=== PATIENT | female | born 1965 | race Caucasian/White ===

== ENCOUNTER 2023-01-17 08:48 | Outpatient (CLI) | payer OTHER, SELFPAY | END 2023-01-17 08:49 | disposition home or self-care (01) | PROVIDERS: Visit Provider Physician Assistant | DX: Z01.419 Encounter for gynecological examination (general) (routine) without abnormal findings (principal); E78.1 Pure hyperglyceridemia; I10 Essential (primary) hypertension; E78.5 Hyperlipidemia, unspecified; Z13.1 Encounter for screening for diabetes mellitus | CPT/HCPCS: 80061; 82947 ==

== ENCOUNTER 2023-01-31 08:56 | Outpatient (CLI) | payer BC, SELFPAY ==
--- NOTE | 2023-01-31 09:15 | CRLHL7_ITS ---
For Patients: As a result of the Century Cures Act, medical imaging exams and procedure reports are released immediately into your electronic medical record. You may view this report before your referring provider. If you have questions, please contact your health care provider. BILATERAL SCREENING MAMMOGRAM WITH COMPUTER-AIDED DETECTION TECHNIQUE: CC and MLO views were obtained. These mammographic images have been obtained using full-field digital technique. These mammographic images were interpreted with the benefit of computer-aided detection. COMPARISON FILM: 09/02/17, 09/07/13, 09/17/11. FINDINGS: The breasts are almost entirely fatty IMPRESSION: There is no radiographic evidence for malignancy. ASSESSMENT: BI-RADS Category 1: Negative RECOMMENDATION: Routine screening mammogram in 1 year. A lay language report of this examination will be provided to the patient. Omid Case M.D. Diagnostic Radiologist [email or web address] RENATA/cici / be/Dictated by: Omid Case MD @ 01/31/2023 11:03:00 AM (Electronically Signed)
== END 2023-01-31 08:57 | disposition home or self-care (01) ==
LOC: MAMMO 08:57
PROVIDERS: Visit Provider Physician Assistant
DX: Z12.31 Encounter for screening mammogram for malignant neoplasm of breast (principal)
CPT/HCPCS: 77067

== ENCOUNTER 2023-02-16 10:35 | Outpatient (CLI) | payer BC, SELFPAY | END 2023-02-16 10:36 | disposition home or self-care (01) | PROVIDERS: Visit Provider Physician Assistant Medical | DX: Z00.00 Encounter for general adult medical examination without abnormal findings (principal); I10 Essential (primary) hypertension; E78.1 Pure hyperglyceridemia; E78.5 Hyperlipidemia, unspecified | CPT/HCPCS: 80053; 84443 ==

== ENCOUNTER 2023-03-07 22:39 | Emergency (ER) | payer BC, SELFPAY ==
[2023-03-07 22:53] VITALS: BP 134/85; PULSE 88; RESP 18; TEMP 36.6; O2SAT 96; BMI 31.6
--- NOTE | 2023-03-08 00:52 | CRLHL7_ITS ---
For Patients: As a result of the Century Cures Act, medical imaging exams and procedure reports are released immediately into your electronic medical record. You may view this report before your referring provider. If you have questions, please contact your health care provider. INDICATION: Right lower quadrant abdominal pain TECHNIQUE: CT Abdomen and pelvis with i.v. contrast. Coronal and sagittal reformats were obtained. CONTRAST: 96 mL Isovue 370 COMPARISON: None FINDINGS: Lower chest: Unremarkable. Liver: Unremarkable. Spleen: Unremarkable. Pancreas: Unremarkable. Gallbladder: Previous cholecystectomy noted without significant intra- or extrahepatic biliary ductal dilatation seen. Kidney: Unremarkable. No kidney or ureteral stones or obstruction seen. Adrenal: Unremarkable. Bowel: Unremarkable. The appendix is normal in appearance and size. Vascular: Unremarkable. Lymph: Unremarkable. Peritoneum: There wispy infiltration of the fat near the tip of the cecum on image 97 which is near the base of the appendix. No pneumoperitoneum is seen. No significant ascites is noted. Pelvis: The right ovary measures 3.5 x 2.5 cm with homogeneous density of 30 HU. The appearance is indeterminate and can be better assessed by outpatient pelvic ultrasound. Soft tissue: Unremarkable. Bone: Unremarkable for age. IMPRESSION: 1. There wispy infiltration of the fat near the tip of the cecum on image 97 which is near the base of the appendix. This may be due to a region of fat necrosis or epiploic appendagitis. Appendicitis is considered much less likely. Dictated by Satya Acuna MD @ 03/08/2023 1:52:55 AM Please note that all CT scans at this facility use dose modulation, iterative reconstruction, and/or weight-based dosing when appropriate to reduce radiation dose to as low as reasonably achievable. Dictated by: Satya Acuna MD @ 03/08/2023 01:52:58 (Electronically Signed)
[2023-03-08 01:01] LABS: Appearance Urine Clear (Clear); Bilirubin Urine Negative (Negative); Blood Urine Negative (Negative); Color Urine Yellow (Yellow); Glucose Urine Negative (Negative); Ketones Urine Negative (Negative); Leukocyte Esterase Urine Negative (Negative); Nitrite Urine Negative (Negative); Protein Urine Negative (Negative); Specific Gravity Urine 1.015 (1.000-1.030); Urobilinogen Urine 0.2 (0.2-1.0); pH Urine 5.5 (5.0-8.5)
[2023-03-08] MEDS: KETOROLAC 15 MG/ML inj IVP (01:03)
[2023-03-08 01:04] LABS: Basophils Percent Auto 0.2 % (0.0-3.0); Eosinophils Percent Auto 2.7 % (0.0-7.0); Hematocrit 46.6 % (33.0-51.0); Hemoglobin* 15.1 gm/dL (12.0-16.0); Immature Granulocytes Pct Auto 0.8 %; Lymphocytes Percent Auto 31.6 % (20-44); Mean Corpuscular HGB Conc 32 gm/dL (32-36); Mean Corpuscular Hemoglobin 31 pg (26-34); Mean Corpuscular Volume 95 fL (80-100); Monocytes Percent Auto 7.6 % (0.0-11.0); Neutrophils Percent Auto 57.1 % (42.0-72.0); Platelet Count* 220 K/uL (140-440); RDW Coefficient of Variation % 11.9 % (11.5-15.5); Red Blood Count 4.89 m/uL (4.00-5.20); White Blood Count* 12.41 K/uL (4.50-11.00)
[2023-03-08] MEDS: ONDANSETRON 2 MG/ML inj 4 MG IVP (01:04)
[2023-03-08 01:07] LABS: Slide Review Reflex No
[2023-03-08 01:27] LABS: Albumin* 4.4 g/dL (3.3-5.0); Chloride* 101 mmol/L (96-114); Sodium* 140 mmol/L (135-149)
[2023-03-08 01:28] LABS: Potassium* 3.6 mmol/L (3.6-5.1)
[2023-03-08 01:30] LABS: Bilirubin Total* 0.4 mg/dL (0.1-1.5); Creatinine* 0.6 mg/dL (0.5-1.5); Est. Creatinine Clearance* 98.01; Estimated Glomerular Filt Rate 105 ml/min
[2023-03-08 01:31] LABS: Alanine Aminotransferase* 28 U/L (4-35); Alkaline Phosphatase* 94 U/L (40-150); Anion Gap 11 mEq/L (7-15); Aspartate Amino Transferase* 36 U/L (12-35); Blood Urea Nitrogen* 19 mg/dL (7-30); Calcium* 9.3 mg/dL (8.4-10.6); Carbon Dioxide* 28 mmol/L (20-32); Glucose* 102 mg/dL (60-115); Lipase* 158 U/L (23-300); Total Protein* 7.8 g/dL (6.0-8.3)
[2023-03-08 01:34] LABS: C Reactive Protein* < 0.5 mg/dL (0.5-1.0)
--- NOTE | 2023-03-08 01:43 | ED_ITS ---
HPI - General Adult General Chief complaint: Abdominal Pain Stated complaint: Abdominal Pain Time Seen by Provider: 03/08/23 00:38 Source: patient Mode of arrival: ambulatory Limitations: no limitations History of Present Illness HPI narrative: 57-year-old female presents the emergency department with abdominal pain for the past 16 hours in the right lower quadrant. Gradual onset, sharp in nature. Worsening in nature now accompanied by nausea. No vomiting. Last bowel movement was this afternoon, loose. She does have a history of prior abdominal surgery with a tubal ligation after to uncomplicated vaginal deliveries and a prior cholecystectomy which was also uncomplicated. No history of bowel obstructions. No history of pancreatitis. She did have some rectal bleeding over the summer which was thought to be benign and does have a colonoscopy scheduled for screening purposes next month. Denies history of any recent rectal bleeding. No vaginal discharge, no dysuria. Has not tried taking any medication to help with her symptoms. No trauma or injury. No history of similar symptoms. Does report prior ovarian cysts as a young woman, none recent. Past medical history notable for hypertension, hyperlipidemia. Home meds are propranolol, amlodipine, a TURP a statin. Two prior abdominal surgeries as stated above, nonsmoker. ROS is notable for the GI symptoms as above, otherwise denies times 12 systems. Related Data Home Medications Medication Instructions Recorded Confirmed multivitamin (Daily Multi-Vitamin 1 tab PO QAM 01/17/23 03/07/23 tablet) Previous Rx's Medication Instructions Recorded atorvastatin 20 mg tablet 20 mg PO QDAY #90 tabs 02/16/23 propranolol 60 mg capsule,24 60 mg PO QDAY #90 caps 02/16/23 hr,extended release peg 3350-electrolytes 236 240 ml PO Q10M #4,000 mL 02/23/23 gram-22.74 gram-6.74 gram-5.86 gram solution (Golytely) amlodipine 5 mg tablet 5 mg PO QHS #30 tabs 03/01/23 amoxicillin 875 mg-potassium 1 tab PO BID #14 tabs 03/08/23 clavulanate 125 mg tablet Allergies Allergy/AdvReac Type Severity Reaction Status Date / Time acetaminophen [From Percocet] Allergy Severe Hallucinati Verified 03/08/23 01:37 ng codeine Allergy Severe Hives Verified 03/08/23 01:37 magnesium salicylate Allergy Severe throat Verified 03/08/23 01:37 swelling monosodium glutamate Allergy Severe Difficulty Verified 03/08/23 01:37 Breathing oxycodone [From Percocet] Allergy Severe Hallucinati Verified 03/08/23 01:37 ng penicillin V Allergy Unknown does not Verified 03/08/23 01:37 work [facility] Medical History Blood in stool ?K92.1 - Melena (ICD-10) Surgical History History of trigger finger ?Z87.39 - Personal history of other diseases of the musculoskeletal system and connective tissue (ICD-10) History of tubal ligation (01/03/09) ?Z98.51 - Tubal ligation status (ICD-10) History of bladder repair surgery ?Z98.890 - Other specified postprocedural states (ICD-10) History of surgery on arm (11/05/09) ?Z98.890 - Other specified postprocedural states (ICD-10) History of loop electrical excision procedure (LEEP) (04/07/09) ?Z98.890 - Other specified postprocedural states (ICD-10) History of bladder repair surgery (01/03/09) ?Z98.890 - Other specified postprocedural states (ICD-10) History of colonoscopy (04/07/09) ?Z98.890 - Other specified postprocedural states (ICD-10) Family History Grandfather High cholesterol Mother Osteoporosis Social History Narrative: [employer] operations, recently quit job and will be looking for part-time work Exercises 2 times a week. Half a pack per day smoker Denies alcohol or illicit drug use What is your current living situation?: I presently have a place to live In the past 12 months, utilities in danger of being shut off: no In past 12 months, lack of transportation kept you from medical appts, meetings, work, or getting things needed for daily living: no Smoking Status: Current every day smoker Do you use any of these nicotine containing products: None Non-prescribed substance use: denies use How often does anyone, including family, friends and others, physically hurt you : never How often does anyone, including family, friends and others, insult or talk down to you: never How often does anyone, including family, friends and others, threaten you with harm: never How often does anyone, including family, friends and others, scream or curse at you: never Little interest or pleasure in doing things: not at all Feeling down, depressed, or hopeless: not at all Exam Const: Vital Signs, click to edit/add: Vital Signs - 24 hr 03/07/23 22:53 Temperature 97.8 F Pulse Rate [Pulse Oximeter] 88 Respiratory Rate 18 Blood Pressure [Ri ght Upper Arm] 134/85 Pulse Oximetry 96 Oxygen Delivery Me thod Room Air Documenting provider has reviewed patient's vital signs: yes Common normals: no apparent distress and alert General appearance: well kempt Orientation/consciousness: Yes awake HENMT: Common normals: normocephalic Head and scalp: normocephalic Face and sinus: normal facial exam Mouth: oral and palatal mucosa normal Throat: posterior oropharynx normal Eye: Common normals: conjunctivae normal General eye: normal appearance of both eyes Conjunctiva: conjunctiva(e) normal Neck & C-Spine: Common normals: full ROM and no lymphadenopathy Resp: Common normals: normal respiratory effort, no use of accessory muscles and clear to auscultation bilaterally Effort & inspection: able to speak in complete sentences Auscultation: clear to auscultation bilaterally Cardio: Common normals: regular rate, regular rhythm, S1 normal heart sound, S2 normal heart sound and no murmurs Rate: regular rate Rhythm: regular rhythm Heart sounds: S1 normal and S2 normal GI: Common normals: Normal to inspection, nondistended, normoactive bowel sounds present, soft to palpation and no hepatosplenomegaly Palpation: soft and no hepatosplenomegaly Other: Does look a little distended. Bowel sounds are present in all 4 quadrants but are slightly high-pitched. She is tender to the palpation of the right lower quadrant with positive Naranjo sign, no guarding or rebound tenderness. No obvious mass but palpation of organs is a bit difficult. : Common normals: no CVA tenderness Bladder/kidney exam: no CVA tenderness Back & Pelvis: Common normals: no CVA tenderness Extremity: Common normals: normal capillary refill Neuro: Sensorium/orientation: awake and alert Motor exam: strength 5/5 throughout Psych: Appearance: well kempt Attitude: engaged Insight: insight good Judgement: judgment good Skin: Common normals: no rashes or lesions noted General skin exam: no rashes or lesions noted Course Course ED Course: Differential diagnosis includes bowel obstruction, appendicitis, ovarian pathology, gastroenteritis, colitis, abdominal tumors, pancreatitis, among others. Because concern for appendicitis based on presentation. Recommend CT scan of the abdomen and pelvis, basic labs, IV. Will receive Zofran and Toradol for pain and nausea. Await findings. Reevaluation(s) Time of Reevaluation #1: 02:00 Reevaluation #1: Mild leukocytosis noted on labs, normal CRP. CT findings show slight inflammation at the base of the cecum but not really true appendicitis. The ovary does look a little unusual for someone her age, I recommend pelvic ultrasound and she was agreeable with this. Normal urinalysis and laboratory studies otherwise. Time of Reevaluation #2: 03:38 Reevaluation #2: Ultrasound findings reviewed with patient, ovarian cyst is unusual for her age, do recommend Gynecology follow-up. Overall her pain is improving with the Toradol. Counseled patient on the Paras appendical inflammation. Recommend oral Augmentin. Recommended trial of watchful waiting and return ED visit if worsening. Does not require surgical intervention or other medical management at this time. She verbalized understanding and agreement. Begin Augmentin 875 p.o. twice daily, 1st dose given in ED, remainder sent to local pharmacy. Counseled on Tylenol and ibuprofen for pain control. Patient verbalizes understanding and agreement, all questions answered. Alarm symptoms reviewed. Vital Signs Vital signs: Initial Vital Signs Temperature 97.8 F 03/07/23 22:53 Temperature Source Temporal Artery Scan 03/07/23 22:53 Pulse Rate 88 03/07/23 22:53 Respiratory Rate 18 03/07/23 22:53 Blood Pressure 134/85 03/07/23 22:53 Blood Pressure Mean 101 03/07/23 22:53 Blood Pressure Position Sitting 03/07/23 22:53 Pulse Oximetry 96 03/07/23 22:53 Oxygen Delivery Method Room Air 03/07/23 22:53 Vital Signs Temperature 97.8 F 03/07/23 22:53 Pulse Rate 88 03/07/23 22:53 Respiratory Rate 18 03/07/23 22:53 Blood Pressure 134/85 03/07/23 22:53 Pulse Oximetry 96 03/07/23 22:53 Oxygen Delivery Method Room Air 03/07/23 22:53 Temperature 97.8 F 03/07/23 22:53 Pulse Rate 88 03/07/23 22:53 Respiratory Rate 18 03/07/23 22:53 Blood Pressure 134/85 03/07/23 22:53 Pulse Oximetry 96 03/07/23 22:53 Oxygen Delivery Method Room Air 03/07/23 22:53 Medical Decision Making Lab Data Lab results reviewed: Yes I reviewed the patient's lab results Lab results narrative: Mild leukocytosis Labs: Lab Results 03/08/23 03/08/23 Range/Units 00:52 01:00 WBC 12.41 H (4.50-11.00) K/uL RBC 4.89 (4.00-5.20) m/uL Hgb 15.1 (12.0-16.0) gm/dL Hct 46.6 (33.0-51.0) % MCV 95 (80-100) fL MCH 31 (26-34) pg MCHC 32 (32-36) gm/dL RDW Coeff of Katelynn 11.9 (11.5-15.5) % Plt Count 220 (140-440) K/uL Neut % (Auto) 57.1 (42.0-72.0) % Lymph % (Auto) 31.6 (20-44) % [place] % (Auto) 7.6 (0.0-11.0) % Eos % (Auto) 2.7 (0.0-7.0) % Baso % (Auto) 0.2 (0.0-3.0) % Neut # (Auto) 7.10 H (1.7-7.0) K/uL Lymph # (Auto) 3.90 H (0.90-2.90) K/uL [place] # (Auto) 0.90 (0.00-0.90) K/UL Eos # (Auto) 0.30 (0.00-0.50) K/uL Baso # (Auto) 0.00 (0.00-0.30) K/uL Abs Immat Gran (auto) 0.10 (0.00-0.30) K/uL Imm/Tot Granulo (auto) 0.8 % Sodium 140 (135-149) mmol/L Potassium 3.6 (3.6-5.1) mmol/L Chloride 101 (96-114) mmol/L Carbon Dioxide 28 (20-32) mmol/L Anion Gap 11 (7-15) mEq/L BUN 19 (7-30) mg/dL Creatinine 0.6 (0.5-1.5) mg/dL Estimated Creat Clear 98.01 Estimated GFR 105 ml/min Glucose 102 (60-115) mg/dL Calcium 9.3 (8.4-10.6) mg/dL Total Bilirubin 0.4 (0.1-1.5) mg/dL AST 36 H (12-35) U/L ALT 28 (4-35) U/L Alkaline Phosphatase 94 (40-150) U/L C-Reactive Protein < 0.5 L (0.5-1.0) mg/dL Total Protein 7.8 (6.0-8.3) g/dL Albumin 4.4 (3.3-5.0) g/dL Lipase 158 (23-300) U/L Urine Color Yellow (Yellow) Urine Appearance Clear (Clear) Urine pH 5.5 (5.0-8.5) Ur Specific [place] 1.015 (1.000-1.030) Urine Protein Negative (Negative) Urine Glucose (UA) Negative (Negative) Urine Ketones Negative (Negative) Urine Blood Negative (Negative) Urine Nitrite Negative (Negative) Urine Bilirubin Negative (Negative) Urine Urobilinogen 0.2 (0.2-1.0) Ur Leukocyte Esterase Negative (Negative) Imaging Data CT scan - abdomen: Attestation: I have reviewed the pertinent imaging results. Radiologist's impression: IMPRESSION: 1. There wispy infiltration of the fat near the tip of the cecum on image 97 which is near the base of the appendix. This may be due to a region of fat necrosis or epiploic appendagitis. Appendicitis is considered much less likely. Dictated by Satya Acuna MD @ 03/08/2023 1:52:55 AM Pelvic ultrasound: Attestation: I have reviewed the pertinent imaging results. Radiologist's impression: IMPRESSION: 1. There is a cystic lesion in the right ovary that measures 3.4 x 2.5 cm. The appearance is unchanged from prior examination and may represent a cystic ovarian neoplasm. Dictated by Satya Acuna MD @ 03/08/2023 3:19:51 AM Discharge Plan Discharge Clinical Impression: Epiploic appendagitis, Ovarian cyst Patient Disposition: Home w/ Parent or Adult Condition: Stable Instructions: Abdominal Pain (ED) Additional Instructions: As we discussed, you have a slight inflammation of the fatty tissue around the appendix but not a full-blown appendicitis. This can most likely just be treated with a few days of oral antibiotics and should resolve without complication. If you start running high fevers, feel very weak, have other signs of complications, please come back to the emergency department. Your pelvic ultrasound shows that you have an ovarian cyst which is similar in size to the ultrasound from 2018. I suspect this is stable but it is unusual for someone of your age to still have an ovarian cyst. I would recommend that you make a follow-up with her senior health physics technician as soon as possible to discuss this further. You were given a dose of Augmentin, a common antibiotic. Take this 2 times daily for the next week. You have already taken your dose for Tuesday morning, your next dose will be later today in the afternoon. It is okay to use Tylenol 1000 mg every 6 hours and or ibuprofen 600 mg every 6 hours as needed for pain. Follow up with her primary care provider if things are not improving within a couple of days. Activity Level: Activity as Tolerated Discharge Diet: Regular Prescriptions: New amoxicillin-pot clavulanate 875-125 mg tablet 1 tab PO BID Qty: 14 0RF No Action atorvastatin 20 mg tablet 20 mg PO QDAY Qty: 90 0RF propranolol 60 mg capsule,extended release 24 hr 60 mg PO QDAY Qty: 90 0RF peg 3350-electrolytes [Golytely] 236-22.74-6.74 -5.86 gram recon soln 240 ml PO Q10M Qty: 4000 0RF Rx Instructions: Follow colonoscopy prep instructions multivitamin [Daily Multi-Vitamin] Tablet 1 tab PO QAM amlodipine 5 mg tablet 5 mg PO QHS Qty: 30 0RF Follow Up/Referrals: Provider,Not a Local [Primary Care Provider] - Stand Alone Forms: [employer] Info Instructions
--- NOTE | 2023-03-08 02:03 | CRLHL7_ITS ---
For Patients: As a result of the Century Cures Act, medical imaging exams and procedure reports are released immediately into your electronic medical record. You may view this report before your referring provider. If you have questions, please contact your health care provider. INDICATION: Right lower quadrant pelvic pain TECHNIQUE: Ultrasound pelvis transvaginal. Endovaginal imaging was performed to better visualize the endometrium and ovaries. Real-time grover scale sonographic images with spectral and color Doppler imaging of the ovaries were obtained. COMPARISON: CT 03/08/2023, 06/11/2017 FINDINGS: Uterus: 5.6 x 3 x 3.6 cm. Normal echotexture of the myometrium noted with no masses are seen. Endometrium: 7 mm. No sign of endometrial mass or fluid present. Right ovary: 3.4 x 2.5 x 2 cm. There is a cystic lesion in the right ovary that measures 3.4 x 2.5 cm. Normal arterial and venous blood flow seen in the right ovary. Left ovary: The left ovary is obscured by bowel gas. Cul-de-sac: No significant ascites noted. IMPRESSION: 1. There is a cystic lesion in the right ovary that measures 3.4 x 2.5 cm. The appearance is unchanged from prior examination and may represent a cystic ovarian neoplasm. Dictated by Satya Acuna MD @ 03/08/2023 3:19:51 AM Dictated by: Satya Acuna MD @ 03/08/2023 03:19:54 (Electronically Signed)
[2023-03-08] MEDS: AMOXICILLIN/CLAVULANATE 875 mg/125 mg TABLET PO (03:39)
[2023-03-08 03:41] VITALS: PULSE 70; RESP 16; O2SAT 100
== END 2023-03-08 03:44 | disposition home or self-care (01) ==
PROVIDERS: Emergency Provider Family Medicine
DX: K35.209 Acute appendicitis with generalized peritonitis, without abscess, unspecified as to perforation (principal)
CPT/HCPCS: 36415; 74177; 76830; 76856; 80053; 81003; 83690; 85025; 86140; 93976; 96374; 96375; 99284; 99285; A9270; J1885; J2405; Q9967

== ENCOUNTER 2023-03-31 08:21 | Outpatient (CLI) | payer BC, SELFPAY ==
--- NOTE | 2023-03-31 10:06 | W.ANESCHARGE ---
Anesthesia Charges Start Date/Time Anesthesia Start Date: 03/31/23 Anesthesia Start Time: 09:30 Stop Date/Time Anesthesia Stop Date: 03/31/23 Anesthesia Stop Time: 10:03
--- NOTE | 2023-03-31 11:57 | W.ANESCHARGE ---
Anesthesia Charges Start Date/Time Anesthesia Start Date: 03/31/23 Anesthesia Start Time: 09:30 Stop Date/Time Anesthesia Stop Date: 03/31/23 Anesthesia Stop Time: 10:03
== END 2023-03-31 08:22 | disposition home or self-care (01) ==
LOC: OP CLINIC 08:22
PROVIDERS: PCP Physician Assistant Medical; Visit Provider Surgery
DX: Z12.11 Encounter for screening for malignant neoplasm of colon (principal); K64.8 Other hemorrhoids; K63.5 Polyp of colon; K64.4 Residual hemorrhoidal skin tags; K57.30 Diverticulosis of large intestine without perforation or abscess without bleeding
CPT/HCPCS: 45385; 811; 88305; J2704

== ENCOUNTER 2023-07-20 14:53 | Outpatient (CLI) | payer MEDICAID, SELFPAY | END 2023-07-20 14:54 | disposition home or self-care (01) | PROVIDERS: PCP Physician Assistant Medical; Visit Provider Family Medicine | DX: R11.2 Nausea with vomiting, unspecified (principal) | CPT/HCPCS: 87045; 87046; 87338; 87427 ==

== ENCOUNTER 2024-02-29 13:07 | Outpatient (CLI) | payer BC, SELFPAY ==
--- NOTE | 2024-02-29 13:20 | CRLHL7_ITS ---
For Patients: As a result of the Century Cures Act, medical imaging exams and procedure reports are released immediately into your electronic medical record. You may view this report before your referring provider. If you have questions, please contact your health care provider. BILATERAL SCREENING MAMMOGRAM WITH COMPUTER-AIDED DETECTION AND TOMOSYNTHESIS TECHNIQUE: CC and MLO views were obtained. These mammographic images have been obtained using full-field digital technique. These mammographic images were interpreted with the benefit of computer-aided detection. Breast Tomosynthesis was used in this interpretation. COMPARISON FILM: 01/31/23, 09/15/17, 04/06/16. FINDINGS: There are scattered areas of fibroglandular density. IMPRESSION: There is no radiographic evidence for malignancy. ASSESSMENT: BI-RADS Category 1: Negative RECOMMENDATION: Routine screening mammogram in 1 year. A lay language report of this examination will be provided to the patient. Omid Case M.D. Diagnostic Radiologist [email or web address] SP/Dictated by: Omid Case MD @ 03/01/2024 8:34:00 AM (Electronically Signed)
== END 2024-02-29 13:08 | disposition home or self-care (01) ==
LOC: MAMMO 13:09
PROVIDERS: PCP Physician Assistant Medical; Visit Provider Physician Assistant Medical
DX: Z12.31 Encounter for screening mammogram for malignant neoplasm of breast (principal)
CPT/HCPCS: 77063; 77067

== ENCOUNTER 2024-05-21 09:43 | Emergency (ER) | payer BC, SELFPAY ==
[2024-05-21 09:56] VITALS: BP 160/92; PULSE 64; RESP 18; TEMP 37.6; O2SAT 99; BMI 30.7
--- NOTE | 2024-05-21 10:00 | CRLHL7_ITS ---
For Patients: As a result of the Century Cures Act, medical imaging exams and procedure reports are released immediately into your electronic medical record. You may view this report before your referring provider. If you have questions, please contact your health care provider. INDICATION: 59-year-old with fall. Posterior hematoma on head. TECHNIQUE: CT head without contrast. COMPARISON: None FINDINGS: CSF spaces: Within normal limits for age. Brain parenchyma: The grover-white differentiation is normal. No sign of mass, hemorrhage, or midline shift. Skull base and calvarium: Mild to moderate scattered paranasal sinus mucosal thickening most marked left maxillary s sinus. The mastoid air cells are clear. The visualized orbits are grossly unremarkable. No skull fractures. Soft tissues: 3.0 x 2.5 x 0.6 centimeter right parasagittal posterior scalp hematoma IMPRESSION: No intracranial abnormalities. Right parasagittal posterior scalp hematoma. Please note that all CT scans at this facility use dose modulation, iterative reconstruction, and/or weight-based dosing when appropriate to reduce radiation dose to as low as reasonably achievable. Dictated by Jack Armstrong MD @ 05/21/2024 10:30:30 AM (Electronically Signed)
--- NOTE | 2024-05-21 10:07 | CRLHL7_ITS ---
For Patients: As a result of the Cures Act, medical imaging exams and procedure reports are released immediately into your electronic medical record. You may view this report before your referring provider. If you have questions, please contact your health care provider. Indication: Right hip pain related to trauma Technique: A single view of the pelvis was acquired. Comparison: No prior plain films of this area are available for comparison Findings: Degenerative changes of the visualized lower lumbar spine. Pelvic calcifications likely represent phleboliths. No visible lytic or blastic lesion, fracture or dislocation identified. Please be aware that this pelvis radiograph is not a formal hip study, which would include 2 dedicated additional images of the hip. Impression: Normal pelvis radiograph. Incidental degenerative change of the visualized lower lumbar spine. This study does not formally evaluate the right hip. Dictated by Albino Tse MD @ 05/21/2024 10:39:53 AM (Electronically Signed)
--- NOTE | 2024-05-21 11:07 | ED_ITS ---
HPI - Fall General Chief Complaint: Fall/Minor Trauma Stated Complaint: fall/hit head Time Seen by Provider: 05/21/24 10:58 History of Present Illness HPI Narrative: This patient is a 59-year-old woman who was at a clinic appointment and received a prescription for sinusitis. As she was exiting she slipped on ice and fell backwards hitting the back of her head. She also fell hitting her right buttock. She went into clinic and they asked her a few questions and she was not clear enough to answer initially. She was able to get up and ambulate normally. She is not reporting a severe headache. She has not had any nausea or vomiting. She was sent here for further evaluation. Related Data Home Medications ?Medication ?Instructions ?Recorded ?Confirmed multivitamin (Daily Multi-Vitamin 1 tab PO QAM 01/17/23 05/21/24 tablet) Previous Rx's ?Medication ?Instructions ?Recorded cefdinir 300 mg capsule 300 mg PO BID 10 days #20 caps 05/21/24 fluconazole 100 mg tablet 100 mg PO .qod #2 tabs 05/21/24 (Diflucan) ketorolac 10 mg tablet 10 mg PO Q8H 5 days #15 tabs 05/21/24 Allergies Allergy/AdvReac Type Severity Reaction Status Date / Time acetaminophen (From Percocet) Allergy Severe Hallucinati Verified 05/21/24 07:22 ng codeine Allergy Severe Hives Verified 05/21/24 07:22 monosodium glutamate Allergy Severe Difficulty Verified 05/21/24 07:22 Breathing oxycodone (From Percocet) Allergy Severe Hallucinati Verified 05/21/24 07:22 ng penicillin V Allergy Unknown does not Verified 05/21/24 07:22 work Review of Systems Status of ROS: Reports: 10 or more systems reviewed and unremarkable except as noted in History and below Narrative: Constitutional: No fevers, no weight gain or loss. Eyes: No discharge. No vision changes. HENT: No sore throat, no ear pain. Sinus congestion and pain. Cardiovascular: No chest pain, no palpitations. Respiratory: No shortness of breath, no wheezes, no cough. Gastrointestinal: No abdominal pain, no vomiting, no diarrhea. Genitourinary: No dysuria, no hematuria. Musculoskeletal: Normal range of motion. Skin: No rashes, no pruritis. Neurological: No dizziness, weakness, sensory change, speech change. Endo/Heme/Allergies: No bruising or bleeding. No polydipsia. Pysch: no suicidality, no anxiety, no insomnia. All other systems reviewed and are negative. [facility] Medical History (Updated 05/21/24 @ 11:22 by Alex Abad MD) Acute maxillary sinusitis ?J01.00 - Acute maxillary sinusitis, unspecified (ICD-10) Blood in stool ?K92.1 - Melena (ICD-10) Surgical History (Updated 04/05/23 @ 14:14 by Brendan Fleming PA-C) History of trigger finger ?Z87.39 - Personal history of other diseases of the musculoskeletal system and connective tissue (ICD-10) History of tubal ligation (01/03/09) ?Z98.51 - Tubal ligation status (ICD-10) History of bladder repair surgery ?Z98.890 - Other specified postprocedural states (ICD-10) History of surgery on arm (11/05/09) ?Z98.890 - Other specified postprocedural states (ICD-10) History of loop electrical excision procedure (LEEP) (04/07/09) ?Z98.890 - Other specified postprocedural states (ICD-10) History of bladder repair surgery (01/03/09) ?Z98.890 - Other specified postprocedural states (ICD-10) History of colonoscopy (04/07/09) ?Z98.890 - Other specified postprocedural states (ICD-10) Family History Grandfather High cholesterol Mother Osteoporosis Social History Narrative: [employer], recently quit job and will be looking for part-time work Exercises 2 times a week. Half a pack per day smoker Denies alcohol or illicit drug use What is your current living situation?: I presently have a place to live In the past 12 months, utilities in danger of being shut off: no In past 12 months, lack of transportation kept you from medical appts, meetings, work, or getting things needed for daily living: no Smoking Status: Current every day smoker Do you use any of these nicotine containing products: None Non-prescribed substance use: denies use How often does anyone, including family, friends and others, physically hurt you : never How often does anyone, including family, friends and others, insult or talk down to you: never How often does anyone, including family, friends and others, threaten you with harm: never How often does anyone, including family, friends and others, scream or curse at you: never Exam Narrative: Exam Narrative: Constitutional: Well-developed, well-nourished, no acute distress. HEENT: Hematoma without any skin injury overlying it and the occipital portion of her head. Neck: Normal range of motion. Nontender. Supple. Heart: Regular. No murmurs. Normal rate. Intact distal pulses. Lungs: Clear to auscultation. No chest discomfort. No wheezes, rhonchi, or rales. Abdomen: Normal bowel sounds. Nontender. No rebound tenderness. Genitalia: Deferred. Back: No midline tenderness. Normal range of motion. Extremities: Normal range of motion. No injury. Skin: Intact. No rash. Warm. No erythema or pallor. Neurologic: No altered sensation. No weakness. Alert and oriented. Psychiatric: No suicidality. No anxiety or depression. No insomnia. Nursing notes and vitals signs are reviewed. Const: Vital Signs, click to edit/add: Vital Signs - 24 hr 05/21/24 09:56 Temperature 99.7 F H Pulse Rate [Pulse Oximeter] 64 Respiratory Rate 18 Blood Pressure [Ri ght Upper Arm] 160/92 H Pulse Oximetry 99 Course Vital Signs Vital signs: Initial Vital Signs Temperature 99.7 F H 05/21/24 09:56 Temperature Source Temporal Artery Scan 05/21/24 09:56 Pulse Rate 64 05/21/24 09:56 Respiratory Rate 18 05/21/24 09:56 Blood Pressure 160/92 H 05/21/24 09:56 Blood Pressure Mean 114 H 05/21/24 09:56 Pulse Oximetry 99 05/21/24 09:56 Vital Signs Temperature 99.7 F H 05/21/24 09:56 Pulse Rate 64 05/21/24 09:56 Respiratory Rate 18 05/21/24 09:56 Blood Pressure 160/92 H 05/21/24 09:56 Pulse Oximetry 99 05/21/24 09:56 Temperature 99.7 F H 05/21/24 09:56 Pulse Rate 64 05/21/24 09:56 Respiratory Rate 18 05/21/24 09:56 Blood Pressure 160/92 H 05/21/24 09:56 Pulse Oximetry 99 05/21/24 09:56 MDM - Fall MDM Narrative Medical decision making narrative: This 59-year-old female fell coming out of a clinic appointment and has a hematoma in the occipital region of her head. She is not showing any neurologic deficits. She does not have any altered level of consciousness and has a GCS of 15. A CT scan of the head is obtained and shows no acute findings. Additionally a x-ray of her pelvis is negative. The patient is ambulatory wi thout difficulty. She is okay to be discharged home. A prescription for Toradol is provided. Imaging Data CT scan - head: Radiologist's impression: No intracranial abnormalities. Right parasagittal posterior scalp hematoma. XR Pelvis: Radiologist's impression: Degenerative changes of the visualized lower lumbar spine. Pelvic calcifications likely represent phleboliths. No visible lytic or blastic lesion, fracture or dislocation identified. Please be aware that this pelvis radiograph is not a formal hip study, which would include 2 dedicated additional images of the hip. Discharge Plan Discharge Clinical Impression: Closed head injury Patient Disposition: Home w/ Parent or Adult Condition: Stable Additional Instructions: Take medication as needed and directed. Activity as tolerated. Follow up with MD return if worsening. Prescriptions: New ketorolac 10 mg tablet 10 mg PO Q8H 5 Days Qty: 15 0RF No Action cefdinir 300 mg capsule 300 mg PO BID 10 Days Qty: 20 0RF Rx Instructions: Kalebt has taken Ceftin in the past and done well with it. fluconazole [Diflucan] 100 mg tablet 100 mg PO .qod Qty: 2 0RF multivitamin [Daily Multi-Vitamin] Tablet 1 tab PO QAM Follow Up/Referrals: Brendan Fleming PA-C [Primary Care Provider] - Stand Alone Forms: [facility] Inst[facility]
== END 2024-05-21 11:37 | disposition home or self-care (01) ==
LOC: ED 11:32
PROVIDERS: Emergency Provider Emergency Medicine Emergency Medical Services; PCP Physician Assistant Medical
DX: S09.90XA Unspecified injury of head, initial encounter (principal); W00.0XXA Fall on same level due to ice and snow, initial encounter
CPT/HCPCS: 70450; 72170; 99284

== ENCOUNTER 2025-04-05 12:40 | Outpatient (CLI) | payer BC, SELFPAY ==
--- NOTE | 2025-04-05 13:20 | CRLHL7_ITS ---
For Patients: As a result of the Century Cures Act, medical imaging exams and procedure reports are released immediately into your electronic medical record. You may view this report before your referring provider. If you have questions, please contact your health care provider. INDICATION: BILATERAL SCREENING MAMMOGRAM, ASYMPTOMATIC 60 Y/O FEMALE COMPARISON: 02/29/2024, 01/31/2023, 09/15/2017 TECHNIQUE: Digital mammogram in CC and MLO projections including computer-aided detection (CAD) and tomosynthesis. BREAST COMPOSITION: There are scattered areas of fibroglandular density. FINDINGS: No suspicious findings. ASSESSMENT: BI-RADS 2 Benign RECOMMENDATION: Annual screening mammogram. A lay language report of this examination will be provided to the patient. Dictated by: Omid Case MD @ 04/08/2025 09:06:39 (Electronically Signed)
== END 2025-04-05 12:41 | disposition home or self-care (01) ==
LOC: MAMMO 12:41
PROVIDERS: PCP Family Medicine; Visit Provider Physician Assistant Medical
DX: Z12.31 Encounter for screening mammogram for malignant neoplasm of breast (principal)
CPT/HCPCS: 77063; 77067